=== PATIENT | male | born 1980 | race Two or more races ===

== ENCOUNTER 2016-12-17 14:41 | Emergency (ER) | payer SELFPAY ==
[2016-12-17 16:03] LABS: BASOPHILS % (AUTO) 0.4 %; EOSINOPHILS # (AUTO) 0.2 10^3/uL (0.0-0.7); HCT - HEMATOCRIT 41.4 % (42.0-52.0); HGB - HEMOGLOBIN 12.8 g/dL (14.0-18.0); LYMPHOCYTES # (AUTO) 1.4 10^3/uL (1.5-3.5); LYMPHOCYTES % (AUTO) 12.1 %; MEAN CORPUSCULAR HEMOGLOBIN 24.4 pg (27.0-31.0); MEAN CORPUSCULAR VOLUME 78.9 fL (80.0-94.0); MEAN PLATELET VOLUME 8.8 fL (7.4-11.4); MONOCYTES # (AUTO) 0.9 10^3/uL (0.0-1.0); MONOCYTES % (AUTO) 7.8 %; NEUTROPHILS # (AUTO) 8.8 10^3/uL (1.5-6.6); NEUTROPHILS % (AUTO) 77.7 %; RED BLOOD COUNT 5.24 10^6/uL (4.70-6.10); RED CELL DISTRIBUTION WIDTH 22.1 % (12.0-15.0); UNCORRECTED WHITE BLOOD COUNT 11.3 x10^3/uL; WHITE BLOOD COUNT 11.3 x10^3/uL (4.8-10.8)
[2016-12-17 16:21] LABS: ALBUMIN/GLOBULIN RATIO 1.5 (1.0-2.2); BILIRUBIN,TOTAL 0.8 mg/dL (0.2-1.0); CALCIUM 9.6 mg/dL (8.5-10.3); CREATININE 0.9 mg/dL (0.6-1.2); POTASSIUM 4.1 mmol/L (3.5-5.0)
[2016-12-17 16:42] LABS: PLATELET ESTIMATE, MANUAL NORMAL (130-450,000) (NORMAL); PLATELET MORPHOLOGY 1+ LARGE PLATELETS (NORMAL)
[2016-12-17 16:43] LABS: WBC MORPHOLOGY (MULTIPLE) NORMAL APPEARANCE (NORMAL)
--- NOTE | 2016-12-17 17:46 | ED Physician Documentation ---
PD HPI GI BLEED - Stated complaint Stated Complaint: BLOODY STOOL - Chief complaint Chief Complaint: Abd Pain - History obtained from History obtained from: Patient, Family - History of Present Illness Timing - onset: How many weeks ago (1) Timing - duration: Weeks (1) Timing - details: Gradual onset Pain level max: 8 Pain level now: 8 Associated symptoms: BRBPR, Diarrhea, Abdominal pain (BLQ). No: Vomiting, Constipation, Fever, Dizzy, Near syncope / syncope Contributing factors: NSAID use (motrin), Other (internal hemorrhoids). No: Sick contact, Bad food, Travel, Recent antibiotics, Alcohol use, Anticoagulated Improved by: Other (nothing) Worsened by: Other (sitting) Similar symptoms before: Diagnosis (internal hemorrhoids) Recently seen: Other (admitted last year for same with anemia. States did not fill his prescriptions and never followed up as instructed.) Review of Systems Ten Systems: 10 systems reviewed and negative Constitutional: denies: Fever, Chills Nose: denies: Rhinorrhea / runny nose, Congestion Respiratory: denies: Cough GI: denies: Nausea, Vomiting, Diarrhea Skin: denies: Rash Musculoskeletal: denies: Neck pain, Back pain Neurologic: denies: Focal weakness, Numbness, Syncope, Headache PD PAST MEDICAL HISTORY - Past Medical History Past Medical History: Yes GI: Hemorrhoids - Past Surgical History Past Surgical History: No - Present Medications Home Medications: Ambulatory Orders Medication Instructions Recorded Confirmed Docusate Sodium 250Mg Capsule 250 mg PO DAILY #20 capsule 12/17/16 [Colace 250Mg Capsule] Hydrocodone/Acetaminophen 1 - 2 each PO Q6H PRN #14 tablet 12/17/16 [Hydrocodon-Acetaminophen 5-325] Hydrocortisone Acetate [Proctocort] 30 mg RC BID PRN #20 supp.rect 12/17/16 - Allergies Allergies/Adverse Reactions: Allergies Allergy/AdvReac Type Severity Reaction Status Date / Time milk Allergy Hives Verified 12/17/16 14:54 - Living Situation Living Situation: reports: With family Living Arrangement: reports: At home - Social History Does the pt smoke?: Yes Smoking Status: Current every day smoker Does the pt drink ETOH?: Yes Does the pt have substance abuse?: No - Immunizations Immunizations are current?: No Immunizations: No immun PD ED PE NORMAL - Vitals Vital signs reviewed: Yes - General General: Alert and oriented X 3, No acute distress, Well developed/nourished - HEENT HEENT: PERRL, Moist mucous membranes - Neck Neck: Supple, no meningeal sign - Cardiac Cardiac: RRR, Strong equal pulses - Respiratory Respiratory: No respiratory distress, Clear bilaterally - Abdomen Abdomen: Soft, Non distended, Other (B LQ tenderness to palpation) - Rectal Rectal: Other (tenderness on rectal exam. hemoccult + QC passed. no prostate tenderness. ) - Derm Derm: Warm and dry - Neuro Neuro: Alert and oriented X 3 - Psych Psych: Normal mood, Normal affect Results - Vitals Vitals: Vital Signs - 24 hr 12/17/16 12/17/16 14:50 19:12 Temperature 36.3 C L Heart Rate 63 65 Respiratory 16 16 Rate Blood Pressure 126/69 114/60 O2 Saturation 100 97 Oxygen O2 Source Room air - Labs Labs: Laboratory Tests 12/17/16 12/17/16 15:46 15:46 WBC 11.3 H RBC 5.24 Hgb 12.8 L Hct 41.4 L MCV 78.9 L MCH 24.4 L MCHC 31.0 L RDW 22.1 H Plt Count 221 MPV 8.8 Neut # 8.8 H Lymph # 1.4 L [place] # 0.9 Eos # 0.2 Baso # 0.0 Absolute Nucleated RBC 0.01 Nucleated RBCs 0.0 Manual Slide Review Indicated WBC Morphology NORMAL APPEARANCE Platelet Estimate NORMAL (130-450,000) Platelet Morphology 1+ LARGE PLATELETS RBC Morph Micro Appear 1+ TEARDROP CELLS Sodium 139 Potassium 4.1 Chloride 108 Carbon Dioxide 25 Anion Gap 6.0 BUN 11 Creatinine 0.9 Estimated GFR (MDRD) 94 Glucose 102 H Calcium 9.6 Total Bilirubin 0.8 AST 24 ALT 28 Alkaline Phosphatase 76 Total Protein 8.0 Albumin 4.8 Globulin 3.2 Albumin/Globulin Ratio 1.5 Lipase 22 - Rads (name of study) CT abd/pelvis Radiology: Prelim report reviewed, EMP read contemporaneously, See rad report ( Normal abdomen and pelvis CT. ) PD MEDICAL DECISION MAKING - ED course Complexity details: reviewed results, re-evaluated patient, considered differential, d/w patient, d/w family ED course: Patient is a 36-year-old male who presents to the emergency department with what appears to be recurrent internal hemorrhoids. He is well-appearing, nontoxic. Afebrile. No significant anemia. No acute findings on CT scan of the abdomen and pelvis. No diverticulitis. No perforation. No abscess. Will place on hydrocortisone suppositories for home and follow-up with his doctor and general surgery. Patient had an EGD and colonoscopy last year, no acute findings other than nonbleeding ulcerations and internal hemorrhoids. Patient and family counseled regarding signs and symptoms for which I believe and urgent re-evaluation would be necessary. Patient with good understanding of and agreement to plan and is comfortable going home at this time This document was made in part using voice recognition software. While efforts are made to proofread this document, sound alike and grammatical errors may occur. Departure - Departure Disposition: 01 Home, Self Care Clinical Impression: Internal hemorrhoid, Hematochezia Condition: Good Instructions: ED Hemorrhoids, ED Hematochezia Stable Follow-Up: Marquis Acosta MD [Primary Care Provider] - Within 1 week Prescriptions: Docusate Sodium 250Mg Capsule [Colace 250Mg Capsule] 250 mg PO DAILY #20 capsule Hydrocodone/Acetaminophen [Hydrocodon-Acetaminophen 5-325] 1 - 2 each PO Q6H PRN #14 tablet PRN Reason: pain Hydrocortisone Acetate [Proctocort] 30 mg RC BID PRN #20 supp.rect PRN Reason: Hemorrhoids Comments: Return if you worsen. you need to follow up with your primary care doctor for further care. Avoid aspirin, motrin, alcohol, and smoking. Do not drink alcohol or drive while on narcotic pain medicine. Note that many narcotic pain relievers also contain tylenol/acetaminophen. Please ensure that your total dose of acetaminophen from all sources does not exceed 3 grams (3000mg) per day. You may constipated on this medication, take a stool softener such as "Colace" twice a day while you are on it. Also recommend a cwel-dxx-qzrerke laxative such as senna or MiraLAX any day that you do not have a bowel movement. If you received narcotic pain medication in the emergency department, do not drive or operate machinery for the next 24 hours. Your blood pressure was elevated today on check in to the emergency department. This does not mean that you have hypertension, it is a common phenomenon to check into the emergency department and have elevated blood pressure. I recommend that you see your primary care physician within the week to have it rechecked when you're feeling better. Discharge Date/Time: 12/17/16 20:23
[2016-12-17] MEDS ORDERED: HYDROmorphone 1 MG/ML SYRINGE IVP STA ×2 (17:49→19:00)
[2016-12-17] MEDS ORDERED: HYDROmorphone 1 MG/ML SYRINGE ONE ×2 (17:55→19:11)
[2016-12-17] MEDS ORDERED: SODIUM CHLORIDE FLUSH 0.9% 10 ML SYRINGE IVP ONE ×2 (17:56→19:12)
[2016-12-17] MEDS ORDERED: IOPAMIDOL-300 100 ML VIAL IVP ONE (19:10)
[2016-12-17 19:18] VITALS: BP 114/60
--- NOTE | 2016-12-17 19:27 | CT Preliminary Report ---
Exam: CT Abdomen/Pelvis W/ IMPRESSION: Normal abdomen and pelvis CT. [facility] SITE ID: [id number]
--- NOTE | 2016-12-17 19:30 | CT Report ---
EXAM: CT ABDOMEN AND PELVIS EXAM DATE: 12/17/2016 07:09 PM. CLINICAL HISTORY: Lower quadrant abdominal pain. COMPARISONS: Rectal bleeding.. TECHNIQUE: Routine helical CT imaging was performed through the abdomen and pelvis. IV contrast: Yes. Enteric contrast: No. Reconstructions: Coronal and sagittal. In accordance with CT protocol optimization, one or more of the following dose reduction techniques w ere utilized for this exam: automated exposure control, adjustment of mA and/or KV based on patient s ize, or use of iterative reconstructive technique. FINDINGS: Lung Bases: Unremarkable. Liver: Normal. No masses. Gallbladder/Bile Ducts: Unremarkable. Spleen: Normal. Pancreas: Normal. Adrenal Glands: Normal. Kidneys: Normal. No masses or hydronephrosis. Peritoneal Cavity/Bowel: Normal. No free fluid, free air or adenopathy. No masses or acute inflammato ry process. The appendix is well visualized and normal. Pelvic Organs: Normal. The bladder and visualized pelvic organs are within normal limits. Vasculature: No aneurysms or other significant abnormality. Bones: No significant abnormality. Other: None. IMPRESSION: Normal abdomen and pelvis CT. [facility] Referring Provider Line: [phone] SITE ID: [id number]
== END 2016-12-17 20:23 | disposition home or self-care (01) ==
LOC: ED 14:41
DX: K64.8 Other hemorrhoids (principal); K92.1 Melena; R03.0 Elevated blood-pressure reading, without diagnosis of hypertension; F17.200 Nicotine dependence, unspecified, uncomplicated
CPT/HCPCS: 36415; 74177; 80053; 83690; 85025; 96374; 96376; 99283; 99284; J1170; Q9967